=== PATIENT | female | born 2000 | race Caucasian/White ===

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

== ENCOUNTER 2018-12-21 06:24 | Emergency (ER) | payer MEDICAID ==
[~2018-12-21] VITALS: Ht 152.4 cm; Wt 50.0 kg
[~2018-12-21 06:24] MED LIST: CEPH-443 PO; IBUP-1561 PO
[2018-12-21 06:25] VITALS: BP 100/57; PULSE 89; RESP 18; Ht 152.4 cm; Wt 50.0 kg
[2018-12-21] MEDS ORDERED: LIDO20SO19 MM (06:43)
[2018-12-21] MEDS ORDERED: CLIN300C10 PO (06:43)
--- NOTE | 2018-12-21 06:57 | ERD ---
ER Documentation Chief Complaint Chief Complaint tooth ache HPI 18-year-old female presenting with dental pain on the left side x5 days. Patient is currently taking amoxicillin and ibuprofen but feels that the pain is worsening. Denies other medical problems. Has no pain with swallowing. Has not use any other medications. Denies allergies to medications. Surgical history denies. Social history denies ROS All systems reviewed and are negative except as per history of present illness. Medications Home Meds Active Scripts Lidocaine (Lidocaine Viscous) 100 Ml Soln, 100 ML MM TID, #1 BOTTLE Prov:ARGENTINA MCMILLAN PA-C 12/21/18 Clindamycin Hcl* (Clindamycin Hcl*) 300 Mg Capsule, 300 MG PO TID for 10 Days, CAP Prov:ARGENTINA MCMILLAN PA-C 12/21/18 Ibuprofen* (Motrin*) 400 Mg Tab, 400 MG PO Q8 for PAIN AND/OR INFLAMMATION, #30 TAB Prov:SANDRA FERNANDEZ MD 07/14/16 Cephalexin* (Keflex*) 500 Mg Capsule, 500 MG PO BID for 5 Days, CAP Prov:SANDRA FERNANDEZ MD 07/14/16 Allergies Allergies: Coded Allergies: No Known Allergy (Unverified , 07/14/16) PMhx/Soc Hx Alcohol Use: No Hx Substance Use: No Hx Tobacco Use: No FmHx Family History: No diabetes, No coronary disease, No other Physical Exam Vitals Vital Signs Date Temp Pulse Resp B/P (MAP) Pulse Ox O2 O2 Flow FiO2 Time Delivery Rate 12/21/18 97.8 89 18 100/57 99 06:25 (71) Physical Exam GENERAL: The patient is well-appearing, well-nourished, in no acute distress HEENT: Atraumatic. Conjunctivae are pink. Pupils equal, round, and reactive to light. There is no scleral icterus. Tympanic membranes clear bilaterally. Oropharynx clear. Dental pain with biting down on tongue depressor. Open sores noted to the posterior oropharynx, tongue and mucous membranes. CHEST: Clear to auscultation bilaterally. There are no rales, wheezes or rhonchi. HEART: Regular rate and rhythm. No murmurs, clicks, rubs or gallops. No S3 or S4. Procedures/MDM MDM: 18-year-old female presenting with dental pain. I believe patient's oral pain is likely associated with oral stomatitis. I will change patient's oral antibiotics given she does have pain with biting down the tongue depressor. I have low suspicion for deep tracking abscess. Patient is discharged with strict ER precautions and told to follow-up with primary care within 1 to 2 days for close evaluation. All questions answered at discharge Departure Diagnosis: Primary Impression: Stomatitis Additional Impression: Toothache Condition: Stable Patient Instructions: Dental Pain, Stomatitis (Child) Referrals: [facility] ([facility] walk [facility]) Additional Instructions: FOLLOW UP WITH YOUR PRIMARY CARE PHYSICIAN TOMORROW.Return to this facility if you are not improving as expected. ARGENTINA MCMILLAN PA-C Dec 21, 2018 06:57
== END 2018-12-21 07:24 | disposition home or self-care (01) ==
LOC: FTE 06:24
DX: K12.1 Other forms of stomatitis (principal)
CPT/HCPCS: 99283